=== PATIENT | male | born 1995 | race Caucasian/White ===

== ENCOUNTER → 2017-12-16 | Outpatient (CLI) | payer OTHER ==
[~2017-12-16] MED LIST: ALBUAER19 INH; CETI10CA OR; SNG10 PO
== END | disposition home or self-care (01) ==
LOC: C.LAB1850 14:52
PROVIDERS: ATTEND Internal Medicine Pulmonary Disease
DX: J30.89 Other allergic rhinitis (principal); J30.1 Allergic rhinitis due to pollen; J45.909 Unspecified asthma, uncomplicated; T78.07XA Anaphylactic reaction due to milk and dairy products, initial encounter; T78.08XA Anaphylactic reaction due to eggs, initial encounter; T78.01XA Anaphylactic reaction due to peanuts, initial encounter; X58.XXXA Exposure to other specified factors, initial encounter